=== PATIENT | male | born 1950 | race Caucasian/White ===

== ENCOUNTER 2019-03-12 20:04 | Emergency (ER) | payer MEDICARE, SELFPAY ==
[2019-03-12 20:05] VITALS: BP 149/103; PULSE 85; RESP 17; RESP 22; TEMP 36.5; O2SAT 98; BMI 30.8
[2019-03-12 21:04] VITALS: RESP 18
[2019-03-12 21:15] LABS: Absolute Neutrophil Count 12.6 X10^3/uL (2.0-7.7); Basophil# 0.04 X10^3/uL; Basophil% 0.3 % (0-1); Eosinophil# 0.04 X10^3/uL; Eosinophils% 0.3 % (0-5); Hematocrit 46.7 % (40-54); Hemoglobin 15.5 g/dL (13.0-16.5); Lymphocyte % 14.5 % (19-41); Mean Corp Hgb Conc 33.2 g/dL (32-36); Mean Corpuscular Hgb 29.8 pg (27.0-32.0); Mean Corpuscular Volume 89.8 fL (80-94); Mean Platelet Vol. 9.8 fl (6.2-12.0); Monocyte# 0.79 X10^3/uL; NRBC Flagged by Analyzer 0 % (0-5); Neutrophil # 12.61 X10^3/uL (2.7-7.7); Neutrophil % 79.6 % (47-70); Platelet Count 315 K/mm3 (150-450); RBC Distribution Width CV 12.8 % (11.6-14.6); White Blood Count 15.8 K/mm3 (4.4-11.0)
[2019-03-12 21:34] LABS: Anion Gap 6 (5-15); BUN 9 mg/dL (7-18); BUN/Creat Ratio 9.1 RATIO (10-20); Calcium,Total 9.7 mg/dL (8.5-10.1); Chloride 108 mmol/L (98-107); Creatinine, Serum 0.99 mg/dL (0.70-1.30); EST Glomerular Filtration Rate 80 mL/min (>60); Est Glom Filt Rate - Afr Amer 97 mL/min (>60); Estimated Creatinine Clearance 78.38 ml/min; Glucose 124 mg/dL (74-106); Potassium 3.9 mmol/L (3.5-5.1); Sodium Level 142 mmol/L (136-145)
[2019-03-12 21:59] LABS: Alcohol, Blood (Medical)-Serum < 3.0 mg/dL
[2019-03-12 22:00] VITALS: RESP 16
[2019-03-12 23:00] VITALS: RESP 18
--- NOTE | 2019-03-12 23:10 | ED.VISSUMM ---
- ER Visit Summary Date of Service: 03/12/19 Chief Complaint: Pressured speech, agitation History of Present Illness: The patient is a 69 M presenting with police for pressured speech, continual conversations about devils, saints, [place]. Patient has pressured speech and is not able to answer simple questions. He is continually talking about the devil and [place]. History is limited. Physical Examination: Vitals are stable. Patient is afebrile. Alert no acute distress. HEENT exam is unremarkable. Neck is supple. Lungs are clear and equal bilaterally. Heart is regular rate and rhythm. Abdomen is soft nontender nondistended. Extremities are unremarkable. Skin is warm and dry. No focal neurologic deficit. Pressured speech, flight of ideas, agitation Remainder of exam is unremarkable. Emergency Department Course and Treatment: CBC shows white count 15.8. Chemistries unremarkable. Alcohol negative. Tox is pending. Will discuss with the counseling center for evaluation. Disposition: Per counseling center Impression: Psychosis, manic behavior This note was generated with [employer] dictation software. It may contain incorrect words, spelling, and punctuation that were not noted in review of the chart prior to signing ED Disposition - Plan for ED Patient: Referrals: Dallas Alaniz MD [Primary Care Provider] -
[2019-03-13] VITALS: RESP 16
[2019-03-13] LABS: Amphetamine Urine VISTA NEGATIVE (<1000 ng/mL); Barbiturate Urine VISTA NEGATIVE (< 200 ng/mL); Benzodiazepine Urine VISTA NEGATIVE (< 200 ng/mL); Cocaine Urine VISTA NEGATIVE (< 300 ng/mL); Ecstacy Urine VISTA NEGATIVE (< 500 ng/mL); Methadone Urine VISTA NEGATIVE (< 300 ng/mL); PCP Urine VISTA NEGATIVE (< 25 ng/mL); THC Urine VISTA POSITIVE (< 50 ng/mL); Vista UDS pH Range 7
[2019-03-13 03:00] VITALS: BP 153/105; PULSE 76; RESP 16; O2SAT 95
[2019-03-13 04:00] VITALS: RESP 16
[2019-03-13 05:51] VITALS: BP 166/100; PULSE 79; RESP 18; O2SAT 98
[2019-03-13 08:08] VITALS: BP 164/89; PULSE 80; RESP 16; O2SAT 99
--- NOTE | 2019-03-13 08:15 | ED.RN ---
FATHER, ALOK, MADE AWARE THAT PATIENT WOULD BE TRANSFERRED TO GENERATIONS.
--- NOTE | 2019-03-13 09:07 | ED.RN ---
[facility] HERE TO TRANSPORT PATIENT, CARE AND REPORT TO THEM, PT STATUS UNCHANGED. BELONGINGS (WALLET, CELL PHONE, ENVELOPE WITH CURRENCY) GIVEN TO AMBULANCE STAFF.
== END 2019-03-13 09:09 ==
PROVIDERS: Emergency Provider Emergency Medicine; Family Provider Specialist; PCP Specialist
DX: F30.2 Manic episode, severe with psychotic symptoms (principal)
CPT/HCPCS: 80048; 80307; 80320; 85025; 99284; G0480